=== PATIENT | female | born 1960 | race Hispanic/Latino ===

== ENCOUNTER 2019-05-14 08:26 | Inpatient (IN) | payer OTHER ==
[~2019-05-14] VITALS: Ht 167.6 cm; Wt 63.5 kg
[2019-05-14] MEDS ORDERED: SODIUM CHLORIDE 0.9% 1000ML 1,000 ML IV STA (08:39)
[2019-05-14 09:27] LABS: BASOPHILS % 0.4 % (0.0-1.0); EOSINOPHILS % 0.3 % (0.0-6.0); HEMATOCRIT 44.1 % (34.2-44.1); HEMOGLOBIN 15.5 g/dL (12.0-16.0); LYMPHOCYTES # (AUTO) 1.6 (1.0-3.2); LYMPHOCYTES % 15.6 % (18.0-39.1); MEAN CORPUSCULAR HEMOGLOBIN 30.9 pg (28-32); MEAN CORPUSCULAR HGB CONC 35.1 g/dL (31-35); MEAN CORPUSCULAR VOLUME 87.8 fL (81-99); MONOCYTES # (AUTO) 0.5 (0.2-0.8); MONOCYTES % 4.9 % (4.4-11.3); NEUTROPHILS # (AUTO) 8.1 (2.1-6.9); NEUTROPHILS % 78.5 % (38.7-80.0); PLATELET COUNT 296 x10e3/uL (140-360); RED BLOOD COUNT 5.02 x10e6/uL (3.6-5.1); RED CELL DISTRIBUTION WIDTH 11.9 % (11.7-14.4)
[2019-05-14 09:44] LABS: ALANINE AMINOTRANSFERASE 13 IU/L (0-55); ALBUMIN 3.6 g/dL (3.5-5.0); ALBUMIN/GLOBULIN RATIO 1.1 (0.8-2.0); ALKALINE PHOSPHATASE 107 IU/L (40-150); ANION GAP 19.4 mmol/L (8-16); BLOOD UREA NITROGEN 21 mg/dL (7-26); BUN/CREATININE RATIO 26 (6-25); CALCIUM 10.2 mg/dL (8.4-10.2); CARBON DIOXIDE 22 mmol/L (22-29); CHLORIDE 99 mmol/L (98-107); CREATININE, SERUM 0.82 mg/dL (0.57-1.11); EST GLOMERULAR FILTRATION RATE > 60 ML/MIN (60-); POTASSIUM 4.4 mmol/L (3.5-5.1); SODIUM 136 mmol/L (136-145)
[2019-05-14] MEDS: SODIUM CHLORIDE 0.9% 1000ML 1,000 ML IV SCH ×2 (09:58→11:49)
[2019-05-14 10:04] LABS: GLUCOSE 462 mg/dL (74-118)
[2019-05-14] MEDS ORDERED: ASPIRIN 325 MG TAB PO ONE (10:15)
[2019-05-14] MEDS ORDERED: DEXTROSE 50% SYRINGE 50 ML IV PRN (10:15)
--- NOTE | 2019-05-14 10:15 | Diagnostic Imaging Report ---
EXAMINATION: MRI of the brain without contrast. HISTORY: Left lower extremity weakness. Possible stroke COMPARISON: None. TECHNIQUE: Sagittal T2; axial DWI, T2, FLAIR, T1-IR, T2 gradient echo; coronal FLAIR. FINDINGS: Parenchyma: 1. Focal area of FLAIR hyperintensity and restricted diffusion in the ventral inferior alba measuring approximately a 1.3 x 1.2 cm diameter, without significant mass effect or definite hemorrhagic component. 2. Few scattered and mildly confluent periventricular white matter T2 and FLAIR hyperintense foci, most likely nonspecific chronic microvascular ischemic changes. 3. No mass, hemorrhage, acute or chronic infarcts. Skull: Unremarkable. Vessels: Expected flow voids present in the major arteries and dural sinuses. Extra-axial spaces: No abnormal signal intensity or mass effect. Brain volume: Within normal limits for age. Ventricles: No hydrocephalus or displacement. Foramen magnum: Unremarkable. Sella: Unremarkable. Paranasal / mastoid sinuses: No significant inflammatory disease. IMPRESSION: 1. Acute ventral alba ischemic infarct. A neurology consult and MR angiogram of the head and neck are recommended for further evaluation. 2. Mild chronic microvascular ischemic changes. The findings were described with the ER physician Dr. Chau on 05/14/2019 10:08 AM Signed by: Dr. Sofie Naik M.D. on 05/14/2019 10:12 AM
--- OUTSIDE RECORDS SUMMARY | 2019-05-14 10:47 | XMS REPORT ---
[facility] Address Unknown Phone Unavailable Care Team Providers Care Lifts And Cranes Inspector Name Role Phone JULIAN DEWEY Unavailable Unavailable Problems This patient has no known problems. Allergies, Adverse Reactions, Alerts This patient has no known allergies or adverse reactions. Medications This patient has no known medications. Results Test Description Test Time Test Comments Text Results Atomic Results Result Comments MRI BRAIN WO 2019-05-14 10:02:00 [place] [id number] Patient Name: CARLOS HARRIS MR #: [id number] : 1960 Age/Sex: 58/F Req #: [id number] Adm Physician: Ordered by: JULIAN DEWEY DO Report #: [id number] Location: ER Room/Bed: Procedure: [id number] MRI/MRI BRAIN WO Exam Date: Exam Time: REPORT STATUS: Signed EXAMINATION: MRI of the brain without contrast. HISTORY: Left lower extremity weakness. Possible stroke COMPARISON: None. TECHNIQUE: Sagittal T2; axial DWI, T2, FLAIR, T1-IR, T2 gradient echo; coronal FLAIR. FINDINGS: Parenchyma: 1. Focal area of FLAIR hyperintensity and restricted diffusion in the ventral inferior alba measuring approximately a 1.3 x 1.2 cm diameter, without significant mass effect or definite hemorrhagic component. 2. Few scattered and mildly confluent periventricular white matter T2 and FLAIR hyperintense foci, most likely nonspecific chronic microvascular ischemic changes. 3. No mass, hemorrhage, acute or chronic infarcts. Skull: Unremarkable. Vessels: Expected flow voids present in the major arteries and dural sinuses. Extra-axial spaces: No abnormal signal intensity or mass effect. Brain volume: Within normal limits for age. Ventricles: No hydrocephalus or displacement. Foramen magnum: Unremarkable. Sella: Unremarkable. Paranasal / mastoid sinuses: No significant inflammatory disease. IMPRESSION: 1. Acute ventral alba ischemic infarct. A neurology consult and MR angiogram of the head and neck are recommended for further evaluation. 2. Mild chronic microvascular ischemic changes. The findings were described with the ER physician Dr. Dewey on 05/14/2019 10:08 AM Signed by: Dr. Elizabet Naik M.D. on 05/14/2019 10:12 AM Dictated By: ELIZABET NAIK MD 1012 Transcribed By: NICK on 05/14/19 1012 COPY TO: JULIAN DEWEY DO
[2019-05-14] MEDS: HYDRALAZINE HCL 20 MG/ML VIAL IV PRN ×2 (11:02→20:48)
[2019-05-14] MEDS ORDERED: GADOBENATE DIMEGLUMINE 1 ML IV ONE (11:21)
[2019-05-14] MEDS ORDERED: SODIUM CHLORIDE 0.9% 50ML 50 ML ONE (11:21)
[2019-05-14] MEDS ORDERED: INSULIN REGULAR, HUMAN 100 UNIT/1 ML 3ML VIAL SQ SCH (11:30)
[2019-05-14] MEDS ORDERED: INSULIN REGULAR, HUMAN 100 UNIT/1 ML 3ML VIAL SQ ONE (12:00)
--- NOTE | 2019-05-14 12:25 | Diagnostic Imaging Report ---
EXAMINATION: Brain MRI and MR angiogram of the [place] and Neck without and with contrast CLINICAL HISTORY: Acute stroke. COMPARISON: Brain MRI performed the same day TECHNIQUE: Brain: Sagittal T2; axial DWI, T2, FLAIR, T1-IR, T2 gradient echo; coronal FLAIR. MRAs: 3D TOF and 2D-TOF images were obtained of the brain and neck. Intravenous Contrast: 13 mL of MultiHance. MRA OF THE [place] : Short segment severe narrowing of the right PARTS PERSON at the P2 segment level (about 5 mm length), with possible filling defect within it, with distal reconstitution of the P3 and P4 segments. Otherwise the distal internal carotid, distal vertebral, basilar, and cerebral arteries are patent. No significant stenosis, occlusion, aneurysm, or arteriovenous malformation is seen. Anatomic variation: Anterior Communicating Artery: Not well visualized Posterior Communicating Arteries: Patent on the right with origin of the right PICA. Not well-visualized on the left Vertebral arteries: Codominant MRA OF THE NECK: If present, stenosis of the carotid bulbs is measured based on NASCET criteria i.e area of maximum stenosis compared to the cervical ICA distal to the bulb. Aortic arch and origin of the vessels: Unremarkable. Right Carotid Artery: The common carotid, carotid bulb, internal and external carotid arteries at the level of the neck are normal in caliber, and patent, no evidence of stenoses. Left Carotid Artery: The common carotid, carotid bulb, internal and external carotid arteries at the level of the neck are normal in caliber, and patent, no evidence of stenoses. Vertebral Arteries: Both are normal in morphology and caliber. Both are codominant. No significant stenosis is seen. IMPRESSION: 1. Focal area of severe stenosis of the right posterior cerebral artery with possible filling defect/thrombus within it as detail above. 2. Otherwise unremarkable MR angiogram of the head and neck, particularly no additional large vessel occlusion is seen. Signed by: Dr. Sofie Naik M.D. on 05/14/2019 12:21 PM
--- NOTE | 2019-05-14 12:25 | Diagnostic Imaging Report ---
EXAMINATION: Brain MRI and MR angiogram of the [place] and [place]ck without and with contrast CLINICAL HISTORY: Acute stroke. COMPARISON: Brain MRI performed the same day TECHNIQUE: Brain: Sagittal T2; axial DWI, T2, FLAIR, T1-IR, T2 gradient echo; coronal FLAIR. MRAs: 3D TOF and 2D-TOF images were obtained of the brain and neck. Intravenous Contrast: 13 mL of MultiHance. MRA OF THE [place] : Short segment severe narrowing of the right PORTRAIT CONSULTANT at the P2 segment level (about 5 mm length), with possible filling defect within it, with distal reconstitution of the P3 and P4 segments. Otherwise the distal internal carotid, distal vertebral, basilar, and cerebral arteries are patent. No significant stenosis, occlusion, aneurysm, or arteriovenous malformation is seen. Anatomic variation: Anterior Communicating Artery: Not well visualized Posterior Communicating Arteries: Patent on the right with origin of the right PICA. Not well-visualized on the left Vertebral arteries: Codominant MRA OF THE NECK: If present, stenosis of the carotid bulbs is measured based on NASCET criteria i.e area of maximum stenosis compared to the cervical ICA distal to the bulb. Aortic arch and origin of the vessels: Unremarkable. Right Carotid Artery: The common carotid, carotid bulb, internal and external carotid arteries at the level of the neck are normal in caliber, and patent, no evidence of stenoses. Left Carotid Artery: The common carotid, carotid bulb, internal and external carotid arteries at the level of the neck are normal in caliber, and patent, no evidence of stenoses. Vertebral Arteries: Both are normal in morphology and caliber. Both are codominant. No significant stenosis is seen. IMPRESSION: 1. Focal area of severe stenosis of the right posterior cerebral artery with possible filling defect/thrombus within it as detail above. 2. Otherwise unremarkable MR angiogram of the head and neck, particularly no additional large vessel occlusion is seen. Signed by: Dr. Sofie Naik M.D. on 05/14/2019 12:21 PM
--- NOTE | 2019-05-14 12:38 | NUR ---
DR LAMB AT PT BEDSIDE
[2019-05-14 13:38] LABS: CHOL/HDL RATIO 4.3 (3.0-3.6)
--- NOTE | 2019-05-14 14:11 | NUR ---
Report received from LULU Malave at ER nurse and no home medications in place, however, patient alert and responsive upon arrival to the floor, no resp distress, ambulated to the bathroom and no c/o pains, s/p CVA with left sided weakness and facial drool, significant deficits, call light within reach, family in room with patient , will monitor.
[2019-05-14 14:28] VITALS: BP 160/66
[2019-05-14] MEDS ORDERED: ZESTRIL10 MG PO (14:45)
[2019-05-14] MEDS ORDERED: METFORMIN HCL500 MG PO (14:45)
[2019-05-14 16:13] VITALS: BP 162/74
[2019-05-14] MEDS: INSULIN LISPRO 100 UNIT/1 ML 3ML VIAL SQ SCH ×2 (16:30→22:38)
--- NOTE | 2019-05-14 16:50 | NUR ---
Patient seen by speech, states patient has some mild oral movement deficits but no aspiration, MBS not required and patient can eat mechanical soft foods and thin liquids, orders in place per MD.
[2019-05-14] MEDS: METFORMIN HCL 500 MG TAB CR PO SCH (17:09)
[2019-05-14] MEDS: LISINOPRIL 10 MG TAB PO SCH (17:09)
--- NOTE | 2019-05-14 18:41 | NUR ---
Patient had dinner and tolerated well, no aspirations noted, OOB and ambulating, will monitor.
--- NOTE | 2019-05-14 19:00 | NUR ---
RECEIVED PATIENT IN BEDSIDE REPORT. MD DE DIOS ALSO IN ROOM AT THIS TIME. PATIENT SITTING IN RECLINER. NO PAIN REPORTED, NO S&S OF DISTRESS NOTED. BED LOCKED IN LOWEST POSITION, CALL LIGHT IN REACH.
[2019-05-14 20:00] VITALS: BP 183/79
--- NOTE | 2019-05-14 20:00 | NUR ---
SPOKE WITH RADIOLOGY, INSTRUCTED TO HAVE PATIENT NOT EAT UNTIL AFTER CT. PATIENT AMBULATING IN HALLWAY WITH WALKER, STEADY GAIT NOTED. INFORMED PATIENT OF NEED TO NOT EAT OR DRINK UNTIL AFTER PROCEDURE, PATIENT VERBALIZED UNDERSTANDING.
[2019-05-14 20:12] VITALS: BP 183/79
[2019-05-14] MEDS ORDERED: ATORVASTATIN 20 MG TAB PO SCH ×2 (21:00)
[2019-05-14] MEDS ORDERED: ATORVASTATIN 40 MG TAB PO SCH (21:00)
--- NOTE | 2019-05-14 21:26 | NUR ---
PATIENT OFF UNIT FOR CT SCAN AT THIS TIME. PATIENT REPORTS FEELING NERVOUS, OTHERWISE NO S&S OF DISTRESS, NO PAIN REPORTED.
[2019-05-14] MEDS: HEPARIN SOD (PORCINE) 5,000 UNIT/ML VIAL SC SCH (21:55)
[2019-05-14] MEDS ORDERED: SODIUM CHLORIDE 0.9% 100 ML 100 ML ONE (22:20)
[2019-05-14] MEDS ORDERED: IOPAMIDOL 370 MG/ML 200 ML INFUS..BTL INJ ONE (22:20)
--- NOTE | 2019-05-14 23:12 | Diagnostic Imaging Report ---
ADDENDUM #1 Upon further evaluation of the CT angiogram of the head; a focal area of severe stenosis of the right posterior cerebral artery at the P2/P3 segment is identified, unchanged compared to MRA of the head performed on 05/14/2019. Signed by: Dr. Soife Naik M.D. on 05/15/2019 8:07 AM ORIGINAL REPORT History:Rule out stroke, Comparison studies:None Technique: Axial images were obtained from the thoracic inlet. 3-D reconstructions and maximum intensity projection reformats were performed. Coronal and sagittal images reconstructed from the axial data. Intravenous contrast: 100 cc of Omnipaque 300. Dose modulation, iterative reconstruction, and/or weight based adjustment of the mA/kV was utilized to reduce the radiation dose to as low as reasonably achievable. Findings: Percentage of stenosis will be based on the NASCET criteria Aortic arch and major vessels: Patent. No abnormalities. Common carotid arteries: Patent. No abnormalities. Right internal carotid artery: Patent. Nonstenotic atherosclerotic calcifications at the bulb and carotid siphon. Left internal carotid artery: Patent. Nonstenotic atherosclerotic calcifications siphons. Normal appearance of. Right vertebral artery: Patent. No abnormalities. Left vertebral artery: Patent. No abnormalities. Basilar artery: Patent. No abnormalities. Posterior cerebral arteries: Patent. No abnormalities. Anatomical variants: Acom: Patent . Pcoms: Patent right, nonvisualized left. Vertebral arteries: Col-dominant Reversal of cervical lordosis. Disc degeneration with decreased intervertebral space at C4-5 and C5-6. Posterior disc osteophyte complex at C4-6 results in mild canal stenosis. Degenerative foraminal, moderate bilateral at C4-5 and severe bilateral at C5-6. IMPRESSION: Cervical CTA: 1. No acute abnormality, high-grade stenosis or occlusion Intracranial CTA: 1. No acute abnormality, high-grade stenosis or occlusion Signed by: DR Farshad Thomason M.D. on 05/14/2019 11:08 PM
[2019-05-15] VITALS: BP 168/75
--- NOTE | 2019-05-15 02:17 | Consultation ---
DATE OF CONSULTATION: 05/14/2019 Neurology Consult Note HISTORY OF PRESENT ILLNESS: Ms. Rooney is a 58-year-old right-hand dominant woman with past medical history significant for hypertension and diabetes mellitus type 2, admitted to [facility] as an inpatient on May 14, 2019, for a stroke. Approximately one week prior to admission, the patient noted the sudden onset of weakness affecting her left leg, poor balance, and impairment of gait. Ms. Rooney does not report a visual field cut or other disturbance, dysarthria, aphasia, facial droop, left arm weakness, hemihypesthesia, dizziness, or confusion associated with the above symptoms. The patient has not experienced similar symptoms previously. She does not report a severe headache associated with the aforementioned symptoms. On the day of admission, the patient went to see a primary care physician. She was directed to the emergency center at [facility] for further evaluation of her symptoms. Upon arrival in the emergency center, the patient was afebrile with a blood pressure of 210/92 mmHg and a pulse of 90 beats per minute. Documentation of the patient's neurological examination is unavailable for review at present. Routine laboratory data was significant for an elevated serum glucose of 462. A resident performing a CT of the brain without contrast. A MRI of the brain without contrast was ordered and performed from the emergency center. This study revealed an acute ischemic stroke in the ventral inferior alba. Ms. Rooney was subsequently admitted to [facility] as an inpatient for further evaluation and treatment of her symptoms. The patient does not take an antiplatelet or anticoagulant medication on a routine basis. Ms. Rooney is compliant with her home medications of lisinopril and metformin. These medications were prescribed by a physician several years ago. Unfortunately, Ms. Rooney never followed up with the prescribing physician. She simply continued to purchase same medications in [place]. REVIEW OF SYSTEMS: Appropriate sadness, weakness of the left leg, poor balance and impairment of gait. Otherwise, a 12-point review of systems is negative. PAST MEDICAL HISTORY: Hypertension and diabetes mellitus type 2. PAST SURGICAL HISTORY: None. PAST HOSPITALIZATIONS: None. FAMILY MEDICAL HISTORY: The patient's father is . He had hypertension. The patient's mother is as well. She had hypertension. She from brain cancer. Ms. Rooney has four sisters, all of whom are alive. One sister has hypertension and diabetes mellitus type 2. The patient has two children, one son and one daughter, both of whom are alive. The daughter is healthy. The son has hypertension. SOCIAL HISTORY: Ms. Rooney is . She is a housewife. There is a remote history of tobacco use, but the patient quit smoking cigarettes 30+ years ago. There is no reported current or prior alcohol or recreational drug use. HOME MEDICATIONS: Lisinopril 10 mg by mouth daily and metformin 500 mg by mouth twice daily. HOSPITAL MEDICATIONS: Aspirin, Lipitor, Pepcid, heparin, hydralazine, Humalog, lisinopril, and metformin. ALLERGIES: NO KNOWN DRUG ALLERGIES. NO KNOWN FOOD ALLERGIES. NO KNOWN ALLERGIES TO LATEX. NO KNOWN ALLERGIES TO IODINE OR OTHER CONTRAST MATERIALS. PHYSICAL EXAMINATION: VITAL SIGNS: Height 66 inches, weight 140 pounds, BMI 22.6 kg/m2, blood pressure 162/74 mmHg, pulse 82 beats per minute, respiratory rate 19 breaths per minute, and oxygen saturation 100% on room air. GENERAL: The patient is awake and alert, in no acute distress. Normal body habitus. HEENT: Normocephalic and atraumatic. Pupils are equal, round, and reactive to light. Moist mucous membranes. NECK: Supple. No appreciable thyromegaly. No appreciable carotid bruits. CARDIOVASCULAR: S1, S2, regular rate and rhythm. No murmurs, rubs, or gallops. RESPIRATORY: Clear to auscultation bilaterally. No wheezes, rhonchi, or rales. EXTREMITIES: The skin is warm and dry. No clubbing, cyanosis, or edema. The posterior tibial and dorsalis pedis pulses are 1+ and symmetric. SKIN: No rashes or lesions. NEUROLOGIC: Memory/Attention: The patient is awake and alert, oriented to person, place, time, and situation. Cranial Nerves: Cranial nerve I - not tested. Cranial nerves II, III, IV, and - pupils are equal and round, reactive briskly to light (from 4 mm to 2 mm). Extraocular movements intact. No nystagmus. Cranial nerve V - sensation to light touch and pinprick is intact in the bilateral V1 through V3 distributions. Strength of the temporalis and masseter muscles are within normal limits. Cranial nerve VII - the face is asymmetric on the left as are all facial movements. Mild left central facial weakness is appreciated. Cranial nerve VIII - hearing is intact to finger rub bilaterally. Cranial nerves IX, X - the soft palate elevates equally and symmetrically. Cranial nerve XI - normal strength of the bilateral sternocleidomastoid and trapezius muscles. Cranial nerve XII - the tongue protrudes midline and moves symmetrically from [id number]. Strength: Bulk is normal. Strength is 5/5 in the right deltoid, biceps, triceps, wrist flexors and extensors, finger flexors and extensors, intrinsic hand muscles, hip flexors, knee flexors and extensors, ankle dorsiflexion and plantar flexion, and intrinsic foot muscles. Strength is 5/5 in the left arm flexors, 4+/5 in the left arm extensors, 4/5 in the left leg flexors, and 4+/5 in the left leg extensors. Tone is mildly decreased in the left arm and left leg. DTRs: Deep tendon reflexes are 1+ and symmetric at the triceps and biceps. Deep tendon reflexes are trace and symmetric at the brachioradialis. Deep tendon reflexes are absent and symmetric at the patellas and Achilles. Plantar responses are flexor bilaterally. Sensation: Sensation is intact to light touch and pinprick in both arms and both legs. Cerebellar: [id number] and heel-ware movements are dysmetric on the left, arm greater than leg. Gait: Deferred. Speech: Spontaneous speech is normal without appreciable dysarthria or aphasia. Repetition is intact. Involuntary Movements: None. Pronator Drift: Left arm. LABORATORY DATA: A comprehensive metabolic panel is significant for an anion gap of 19.4, BUN to creatinine ratio of 26, and glucose of 462. Hemoglobin A1c 13.9. Total cholesterol 184, triglycerides 149, LDL cholesterol 111, and HDL cholesterol 43. The CBC with differential and platelets reveals a white blood cell count of 10.37 with a slight left shift with 78.5% neutrophils, 15.6% lymphocytes, 4.9% monocytes, 0.3% eosinophils, and 0.4% basophils. The hemoglobin and hematocrit are 15.5 and 44.1, respectively. The platelet count is 296. DIAGNOSTIC STUDIES: Electrocardiogram on 05/14/2019: Normal sinus rhythm at 81 beats per minute. Left axis deviation. MRI of the brain without contrast on 05/14/2019: On my review, there is acute ischemia in the ventral inferior alba. There is no evidence of remote large territorial ischemia, hemorrhage, mass, or mass effect. Cerebral volumes are appropriate for age. There are few scattered, mildly confluent T2/FLAIR hyperintense foci of the supratentorial and infratentorial white matter, compatible with moderate chronic small vessel ischemic disease. MRA of the brain and neck on 05/14/2019: There appears to be a focal area of severe stenosis in the right posterior cerebral artery with a possible filling defect or thrombus. Otherwise, the intra and extracranial vasculature are widely patent. Echocardiogram on 05/14/2019: Ejection fraction is 70%. There is concentric left ventricular hypertrophy observed. ASSESSMENT AND PLAN: Ms. Rooney is a 58-year-old right-hand dominant woman with multiple poorly-controlled vascular risk factors, admitted to [facility] on May 14, 2019, with a ventral pontine ischemic stroke. The patient's neurological examination is significant for mild left hemiparesis affecting the face, arm, and leg and dysmetria on the left. The patient's laboratory data and other diagnostic studies have been reviewed and are documented above. RECOMMENDATIONS: Are as follows: 1. A CTA of the head and neck will be ordered to further assess for intra and extracranial stenosis. 2. Continue aspirin 325 mg by mouth daily for stroke prophylaxis. 3. Allow permissive hypertension pending the CTA results. Goal systolic blood pressure is 160 to 200 mmHg. Goal diastolic blood pressure is 70 to 100 mmHg. Monitor vital signs per unit protocol. 4. The patient's goal total cholesterol is less than 200 with an LDL of less than 70. The total cholesterol is at goal. However, the LDL is approximately 40 points above goal. Agree with treatment with atorvastatin, but the dose should be increased to 40 mg by mouth at bedtime daily. 5. The patient's goal hemoglobin A1c is less than 7.0. Ms. Rooney's hemoglobin A1c is 13.9. Continue sliding scale insulin per protocol. Tight glycemic control is recommended, while the patient is hospitalized. Defer treatment of the patient's diabetes mellitus type 2 to the primary service. 6. GI prophylaxis with Pepcid 20 mg by mouth twice daily with meals. DVT prophylaxis with heparin 5000 units subcutaneously q.12 hours. 7. The patient has undergone Speech and Physical therapy evaluations. Speech therapy recommended mechanical soft diet with thin liquids. Physical therapy recommended outpatient therapies (speech, occupational, and physical). Furthermore, physical therapy recommended the patient be given a rolling walker at the time of discharge. 8. Defer treatment of the remaining medical comorbidities to the primary and other services following the patient. Thank you for this consultation. I will continue to follow the patient, while she remains in the hospital. TIME SPENT: 50 minutes. Razia Recinos MD CP/BRAEDEN /[id number] MTDKodi
[2019-05-15 04:00] VITALS: BP 185/86
[2019-05-15] MEDS: HYDRALAZINE HCL 20 MG/ML VIAL IV PRN ×2 (04:40→09:24)
[2019-05-15] MEDS: FAMOTIDINE 20 MG TAB PO SCH ×2 (07:30→16:34)
[2019-05-15] MEDS: INSULIN LISPRO 100 UNIT/1 ML 3ML VIAL SQ SCH ×3 (07:30→16:07)
--- NOTE | 2019-05-15 07:30 | NUR ---
Received patient this morning and a/ox3, no resp distress, call light within reach and will monitor.
[2019-05-15 07:37] VITALS: BP 177/77
[2019-05-15] MEDS: METFORMIN HCL 500 MG TAB CR PO SCH ×2 (08:00→16:35)
[2019-05-15] MEDS ORDERED: ASPIRIN 325 MG TAB PO SCH (09:00)
[2019-05-15] MEDS: LISINOPRIL 10 MG TAB PO SCH ×2 (09:21→16:35)
[2019-05-15] MEDS: HEPARIN SOD (PORCINE) 5,000 UNIT/ML VIAL SC SCH (09:21)
--- NOTE | 2019-05-15 09:24 | NUR ---
Elevated blood sugar and coverage provided per protocol, blood sugar was post-meal, will check pre-meal, no signs of diabetic reaction, tolerated all meds, will monitor.
[2019-05-15 10:22] VITALS: BP 177/77
--- NOTE | 2019-05-15 11:25 | NUR ---
Patient with BP 186/77, call to attending and orders for Carvedilol 6.5mg BID. orders in place, will monitor.
[2019-05-15] MEDS: CARVEDILOL 3.125 MG TAB PO SCH ×2 (11:58→16:35)
[2019-05-15 11:59] VITALS: BP 186/77
--- NOTE | 2019-05-15 13:06 | NUR ---
Rounds by attending, checked BP at 160/80, P103, reviewed chart and ok to discharge patient. Patient to f/u with primary care and neurology outpatient and to have outpatient PT set up with front wheel walker. Discharge summary in place, prescriptions provided to patient, education on stroke provided.
[2019-05-15] MEDS ORDERED: ASPIR 8181 MG PO (14:03)
[2019-05-15] MEDS ORDERED: LIPITOR10 MG PO (14:05)
[2019-05-15] MEDS ORDERED: COREG3.125 MG PO (14:06)
--- NOTE | 2019-05-15 14:22 | NUR ---
PROVIDED ROLLING WALKER FOR PT FOR DISCHARGE. OBTAINED SIGNATURES AND FILED IN PACU FOR PROCESSING. OBTAINED CHOICE FOR OUTPT THERAPY FOR [facility]IENTS [facility]. FILED CHOICE IN CHART. ALSO FAXED FACESHEET, H AND P, AND PT NOTES TO [facility] OF [facility] AT [phone].
--- NOTE | 2019-05-15 14:24 | NUR ---
manager lighting confirmed Physical therapy for outpatient has been set up.
[2019-05-15 16:11] VITALS: BP 171/74
--- NOTE | 2019-05-16 05:22 | Discharge Summary ---
PRIMARY CARE DOCTOR: Dr. Owen Mendez. FINAL DIAGNOSIS: Acute pontine stroke. SECONDARY DIAGNOSES: 1. Uncontrolled hypertension. 2. Uncontrolled diabetes. CONSULTANTS: Dr. Recinos, Neurology. PROCEDURE/STUDIES PERFORMED: MRI and CT of the head and neck. HISTORY: Per H and P. HOSPITAL COURSE: The patient was admitted. The patient was found to have acute pontine stroke. The patient was evaluated by Neurology. Aspirin was started. The patient was not on any aspirin at home. Her blood pressure medicine has been adjusted for better blood pressure control. Her metformin was increased as well given that her hemoglobin A1c was 13. Lipitor was started as well for dyslipidemia. The patient was evaluated by physical therapist and speech therapist. The patient was cleared to have a diet. At this time, the recommendation is for outpatient physical therapy and a front wheel walker. The patient will follow up with Dr. Mendez in 1 to 2 weeks. The patient will also follow up with Neurology in 2 weeks. The patient was seen and examined today. It took 31 minutes total to discharge this patient. I have updated the family at the bedside. All questions have been answered. CONDITION ON DISCHARGE: Improved. DISCHARGE MEDICATIONS: Please see medication reconciliation form. Yiching MD KIRA Bowamn/BRAEDEN /[id number] cc: Owen Mendez
== END 2019-05-15 16:50 | disposition home or self-care (01) | DRG 65 ==
LOC: ER 08:26 → ERHOLD 09:16 → MED/SURG2 14:09
PROVIDERS: ADMIT Internal Medicine; ATTEND Internal Medicine
DX: I63.89 Other cerebral infarction (principal); G81.94 Hemiplegia, unspecified affecting left nondominant side; R29.810 Facial weakness; E11.65 Type 2 diabetes mellitus with hyperglycemia; E78.5 Hyperlipidemia, unspecified; I10 Essential (primary) hypertension; Z79.84 Long term (current) use of oral hypoglycemic drugs
CPT/HCPCS: 36415; 70496; 70498; 70544; 70549; 70551; 80053; 80061; 82948; 83036; 85025; 93005; 93306; 99284; J0360; J1644; J1817; J7030; Q9967